=== PATIENT | male | born 1990 | race Caucasian/White ===

== ENCOUNTER 2016-07-23 09:34 | Emergency (ER) | payer OTHER ==
[2016-07-23] MEDS ORDERED: SUMAtriptan 25 MG TABLET PO STA (12:23)
[2016-07-23] MEDS ORDERED: IBUPROFEN 600 MG TABLET PO STA (12:23)
[2016-07-23] MEDS ORDERED: ONDANSETRON ODT 4 MG TABLET TL STA (12:23)
[2016-07-23] MEDS ORDERED: SUMAtriptan 25 MG TABLET PO ONE (12:27)
[2016-07-23] MEDS ORDERED: IBUPROFEN 800 MG TABLET PO ONE (12:27)
[2016-07-23] MEDS ORDERED: ONDANSETRON ODT 4 MG TABLET ONE (12:27)
[2016-07-23] MEDS ORDERED: IBUPROFEN 600 MG TABLET PO ONE (12:30)
== END 2016-07-23 12:35 | disposition home or self-care (01) ==
DX: G43.409 Hemiplegic migraine, not intractable, without status migrainosus (principal)
CPT/HCPCS: 99283; A9270; Q0162